=== PATIENT | male | born 1950 | race Caucasian/White ===

== ENCOUNTER 2017-03-28 05:53 | Day surgery (SDC) | payer OTHER ==
[~2017-03-28] VITALS: Ht 160 cm; Wt 50.0 kg
[~2017-03-28 05:53] MED LIST: ABREVA IH; DOXY100C PO; FAMO20 PO; MONT10TA21 PO
[2017-03-28] MEDS ORDERED: SODIUM CHLORIDE 0.9% 1,000 ML IV ONE ×2 (06:03→06:30)
[2017-03-28] MEDS ORDERED: FentaNYL CITRATE-PF 100 MCG/2 ML VIAL ONE (07:44)
[2017-03-28] MEDS ORDERED: MIDAZOLAM HCL 2 MG/2 ML VIAL ONE (07:44)
[2017-03-28] MEDS ORDERED: MethylPREDNISolone SOD SUCC 125 MG/2 ML VIAL IVP ONE (08:30)
[2017-03-28] MEDS ORDERED: MethylPREDNISolone SOD SUCC 125 MG/2 ML VIAL ONE (08:53)
[2017-03-28 10:40] LABS: GLUCOSE,POINT OF CARE 105 MG/DL (70-110)
[2017-03-28] MEDS ORDERED: ALBUTEROL SULFATE 2.5 MG/0.5 ML NEB SOLUTION NEB ONE (16:34)
[2017-03-28] MEDS ORDERED: BENZOCAINE 20% 50 MCG/SPRAY 57 GM TP ONE (16:34)
[2017-03-28] MEDS ORDERED: LIDOCAINE HCL 2% 30 ML JELLY TP ONE (16:34)
[2017-03-28] MEDS ORDERED: LIDOCAINE HCL 4% 50 ML SOLUTION TP ONE (16:34)
[2017-03-28] MEDS ORDERED: OXYGEN THERAPY IH SCH (20:00)
== END 2017-03-28 09:55 | disposition home or self-care (01) ==
LOC: SURGERY 05:53
PROVIDERS: ATTEND Internal Medicine Critical Care Medicine
DX: J38.4 Edema of larynx (principal); B37.0 Candidal stomatitis; J39.8 Other specified diseases of upper respiratory tract; F17.200 Nicotine dependence, unspecified, uncomplicated; Z72.89 Other problems related to lifestyle; Z98.890 Other specified postprocedural states; Z79.899 Other long term (current) drug therapy
CPT/HCPCS: 31623; 31624; 71010; 82962; 87015 ×2; 87070; 87101; 87147; 87205; 87220; 88108; 88312; 93005; J2250; J2930; J3010; J7030

== ENCOUNTER 2019-04-02 05:58 | Day surgery (SDC) | payer OTHER ==
[~2019-04-02] VITALS: Ht 162.6 cm; Wt 51.8 kg
[~2019-04-02 05:58] MED LIST changes: +SODIUM CHLORIDE 0.9% 1,000 ML IV ONE
[2019-04-02] MEDS ORDERED: ALBUTEROL SULFATE 2.5 MG/0.5 ML NEB SOLUTION NEB ONE (05:59)
[2019-04-02] MEDS ORDERED: BENZOCAINE 20% 50 MCG/SPRAY 57 GM TP ONE (05:59)
[2019-04-02] MEDS ORDERED: LIDOCAINE 2% 30 ML JELLY TP ONE (05:59)
[2019-04-02] MEDS ORDERED: SODIUM CHLORIDE 0.9% 1,000 ML IV ONE (07:00)
[2019-04-02] MEDS ORDERED: CYAN50TA2 PO (07:13)
[2019-04-02] MEDS ORDERED: FLUT16H NASAL (07:13)
[2019-04-02] MEDS ORDERED: OMEP20 PO (07:13)
[2019-04-02] MEDS ORDERED: AMLO5TAB9 PO (07:13)
[2019-04-02] MEDS ORDERED: MIDAZOLAM HCL 2 MG/2 ML VIAL ONE (07:33)
[2019-04-02] MEDS ORDERED: FentaNYL CITRATE-PF 100 MCG/2 ML VIAL ONE (07:33)
[2019-04-02] MEDS ORDERED: MethylPREDNISolone SOD SUCC 125 MG/2 ML VIAL IVP ONE (08:45)
[2019-04-02] MEDS ORDERED: OXYGEN THERAPY IH SCH (20:00)
== END 2019-04-02 09:50 | disposition home or self-care (01) ==
LOC: SURGERY 05:58
PROVIDERS: ATTEND Internal Medicine Critical Care Medicine
DX: J38.4 Edema of larynx (principal); B37.0 Candidal stomatitis; J45.909 Unspecified asthma, uncomplicated; J98.8 Other specified respiratory disorders; I10 Essential (primary) hypertension; F17.210 Nicotine dependence, cigarettes, uncomplicated; Z72.89 Other problems related to lifestyle; Z79.899 Other long term (current) drug therapy; Z98.890 Other specified postprocedural states
CPT/HCPCS: 31623; 31624; 71045; 87015; 87070; 87101; 87205; 87206; 87220; 88108; 88312; J2250; J2930; J3010; J7030